=== PATIENT | female | born 2000 | race Caucasian/White ===

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

== ENCOUNTER → 2024-08-16 | Outpatient (CLI) | payer BC ==
[~2024-08-16] MED LIST: Levalbuterol Neb Soln 1.25 MG/3 ML UD IH ONE
== END ==
LOC: COL.CARD 10:37
DX: R05.2 Subacute cough (principal); R06.02 Shortness of breath